=== PATIENT | female | born 1995 | race Caucasian/White ===

== ENCOUNTER 2018-09-05 17:21 | Emergency (ER) | payer MEDICAID ==
[~2018-09-05] VITALS: Ht 162.6 cm; Wt 97.1 kg
[~2018-09-05 17:21] MED LIST: IBUP-1542 PO; PRENAT PO
[2018-09-05 17:25] VITALS: BP 124/67; PULSE 90; RESP 18; Ht 162.6 cm; Wt 97.1 kg
--- NOTE | 2018-09-05 21:44 | ERD ---
ER Documentation Chief Complaint Chief Complaint right ankle pain stepped into a hole yesterday HPI 23-year-old female, previously healthy, presents the emergency department, complaining of right ankle pain after a forced inversion that occurred yesterday afternoon is stepping on a hole. The pain is dull, constant, 5/10, the patient has been able to ambulate with limping. She denies distal weakness, numbness or tingling. ROS All systems reviewed and are negative except as per history of present illness. Medications Home Meds Active Scripts Ibuprofen* (Motrin*) 600 Mg Tab, 600 MG PO Q8, #15 TAB Prov:SELENA LEIVA MD 09/05/18 Ibuprofen* (Ibuprofen*) 600 Mg Tab, 600 MG PO Q6, #20 TAB 0 Refills Prov:EMERALD GOULD MD 09/09/15 Reported Medications Multivit/Min/Fol Ac/Iron/Pren* ( S*) 1 Tab Tab, 1 TAB PO DAILY, TAB 09/08/15 Allergies Allergies: Coded Allergies: No Known Allergy (Unverified , 09/08/15) Physical Exam Vitals Vital Signs Date Temp Pulse Resp B/P (MAP) Pulse Ox O2 O2 Flow FiO2 Time Delivery Rate 09/05/18 99.2 90 18 124/67 98 17:25 (86) Physical Exam Const: No acute distress Head: Atraumatic Eyes: Normal Conjunctiva ENT: Normal External Ears, Nose and Mouth. Neck: Full range of motion. No meningismus. Resp: Clear to auscultation bilaterally Cardio: Regular rate and rhythm, no murmurs Abd: Soft, non tender, non distended. Normal bowel sounds Skin: No petechiae or rashes Back: No midline or flank tenderness Ext: Right ankle: Significant edema and tenderness over the lateral malleolus, no gross deformity, full passive range of motion, distal neurovascular exam intact. Neur: Awake and alert Psych: Normal Mood and Affect Procedures/MDM Acute right ankle pain: no red flags. Differential diagnosis include but not limited to: Ankle sprain/strain, ligament injury, arthritis; low suspicion for fracture, dislocation, septic arthritis. Neurovascular exam grossly intact. no clinical findings suggestive of acute infectious process, no deformity, no rashes. Pertinent Data: X-rays: No fracture or dislocation Physical examination and clinical presentation consistent most likely with right ankle sprain. During the ED course the patient received treatment with megan wrap, ortho shoe and crutches presenting overall improvement of the symptoms. Results and clinical impression discussed with patient who agrees with mirian sharma. The patient is stable to be treated outpatient and will be discharged home with recommendations for ice, rest and partial immobilization. NSAIDs 3 times daily for 5 days and close monitoring. The patient was instructed to follow up with the primary care provider in the next 48h. If symptoms persist, worsen or new symptoms develop, then patient should return to the ED immediately. Instructions explained and given to patient with acknowledgment and demonstrated understanding. Disclaimer: Inadvertent spelling and grammatical errors are likely due to EHR/dictation software use and do not reflect on the overall quality of patient care. Also, please note that the electronic time recorded on this note does not necessarily reflect the actual time of the patient encounter. Departure Diagnosis: Primary Impression: Right ankle sprain Condition: Stable Patient Instructions: Self-Care for Strains and Sprains Additional Instructions: Thank you very much for allowing us to participate in your care. Your health and safety is our top priority at [facility]. Call your primary care doctor TOMORROW for an appointment during the next 2-4 days and bring all the information and medications prescribed. Have prescriptions filled and follow precisely the directions on the label. If the symptoms get worse and your provider is unavailable, return to the Emergency Department immediately. SELENA LEIVA MD Sep 05, 2018 21:44
[2018-09-05] MEDS ORDERED: IBUP-1542 PO (23:10)
== END 2018-09-05 23:26 | disposition home or self-care (01) ==
LOC: FTE 17:21
DX: S93.401A Sprain of unspecified ligament of right ankle, initial encounter (principal); X50.1XXA Overexertion from prolonged static or awkward postures, initial encounter; Y92.9 Unspecified place or not applicable
CPT/HCPCS: 73610; 73630; Z7502